=== PATIENT | male | born 1970 | race Hispanic/Latino ===

== ENCOUNTER 2019-01-13 11:00 | Observation (INO) | payer BC, MEDICARE ==
[2019-01-13 11:00] VITALS: BMI 43.7
--- NOTE | 2019-01-13 12:26 | C.PDOC ---
History Of Present Illness WORSENING CP X SEV MONTHS. S/P +OUTPT STRESS TEST. WORSE W MOD EXERTION. NO ASSOC SOB, DIZZY, NV. CURRENTLY ASYMPT. EXAM NEG Time Seen by Provider: 01/13/19 11:29 Chief Complaint (Nursing): Medical Clearance History Per: Patient History/Exam Limitations: no limitations Onset/Duration Of Symptoms: Days Current Symptoms Are (Timing): Gone Severity: Moderate Past Medical History Reviewed: Historical Data, Nursing Documentation, Vital Signs Vital Signs: Last Vital Signs Temp 98.3 F 01/13/19 11:05 Pulse 89 01/13/19 11:05 Resp 18 01/13/19 11:05 BP 130/88 01/13/19 11:05 Pulse Ox 97 01/13/19 11:05 - Medical History PMH: Diabetes, HTN Denies: Chronic Kidney Disease Surgical History: Appendectomy (AGE 10), Tonsillectomy (CHILDHOOD) - [facility] Procedures COLONOSCOPY (01/01/14) ESOPHAGOGASTRODUODENOSCOPY [EGD] W/CLOSED BIOPSY (01/01/14) Family History: States: No Known Family Hx - Social History Hx Tobacco Use: No Hx Alcohol Use: No Hx Substance Use: No - Immunization History Hx Tetanus Toxoid Vaccination: No Hx Influenza Vaccination: Yes Hx Pneumococcal Vaccination: No Review Of Systems Except As Marked, All Systems Reviewed And Found Negative. Constitutional: Negative for: Fever, Chills Cardiovascular: Positive for: Chest Pain Respiratory: Negative for: Shortness of Breath Gastrointestinal: Negative for: Nausea, Vomiting Neurological: Negative for: Dizziness Physical Exam - Physical Exam Appears: Non-toxic, No Acute Distress Skin: Warm, Dry Head: Atraumatic, Normacephalic Eye(s): bilateral: Normal Inspection Oral Mucosa: Moist Neck: Supple Chest: Symmetrical, No Tenderness Cardiovascular: Rhythm Regular Respiratory: Normal Breath Sounds, No Rales, No Rhonchi, No Wheezing Gastrointestinal/Abdominal: Soft, No Tenderness, No Guarding, No Rebound Neurological/Psych: Oriented x3, Normal Speech ED Course And Treatment - Laboratory Results Result Diagrams: 01/13/19 12:30 ECG: Interpreted By Me ECG Rhythm: Sinus Rhythm ECG Interpretation: Normal Rate From EC O2 Sat by Pulse Oximetry: 97 (RA) Pulse Ox Interpretation: Normal - Physician Consult Information Time Consulting Physician Contacted: 12:33 Physician Contacted: Amy Mullen Outcome Of Conversation: C/F PMD WILL ADMIT Medical Decision Making Medical Decision Making: Plan: --Labs --ECG --CXR --Gabapentin PO --Metformin PO Disposition Counseled Patient/Family Regarding: Studies Performed, Diagnosis - Disposition Disposition: HOSPITALIZED Disposition Time: 12:33 Condition: SERIOUS - POA Present On Arrival: None - Clinical Impression Clinical Impression: Chest pain - Scribe Statement The provider has reviewed the documentation as recorded by the Gina Plunkett Provider Attestation: All medical record entries made by the Gina were at my direction and personally dictated by me. I have reviewed the chart and agree that the record accurately reflects my personal performance of the history, physical exam, medical decision making, and the department course for this patient. I have also personally directed, reviewed, and agree with the discharge instructions and disposition.
[2019-01-13 12:36] LABS: BASO # 0.1 K/uL (0.0-0.2); BASO % 1.1 % (0.0-2.0); EOS # 0.1 K/uL (0.0-0.7); EOS % 1.5 % (0.0-4.0); HEMOGLOBIN 15.6 g/dL (12.0-18.0); LYMPH # 1.9 K/uL (1.0-4.3); LYMPH % 19.5 % (20.0-40.0); MEAN CELL VOLUME 89.3 fL (80.0-94.0); MEAN CORPUSCULAR HEMOGLOBIN 31.6 pg (27.0-31.0); MEAN CORPUSCULAR HGB CONC 35.4 g/dL (33.0-37.0); MEAN PLATELET VOLUME 8.8 fL (7.2-11.7); MONO # 0.5 K/uL (0.0-0.8); MONO % 4.9 % (0.0-10.0); RBC 4.93 Mil/uL (4.40-5.90); RED CELL DISTRIBUTION WIDTH 12.6 % (11.5-14.5); WHITE BLOOD COUNT 9.6 K/uL (4.8-10.8)
--- NOTE | 2019-01-13 12:50 | RAD ---
HISTORY: chest pain COMPARISON: Chest x-ray performed 12/15/14 TECHNIQUE: Chest PA and lateral, 2 views FINDINGS: Partially imaged LEAD BLENDER shunt catheter tubing projects over the left neck/hemithorax/upper abdomen. LUNGS: No focal consolidation. Please note that chest x-ray has limited sensitivity for the detection of pulmonary masses. PLEURA: No significant pleural effusion identified. No definite pneumothorax . CARDIOVASCULAR: The cardiomediastinal silhouette appears within normal limits of size. No atherosclerotic calcification present. OSSEOUS STRUCTURES: No acute osseous abnormality identified. VISUALIZED UPPER ABDOMEN: Unremarkable. OTHER FINDINGS: None. IMPRESSION: No focal consolidation. Findings as above.
[2019-01-13 12:58] LABS: ALB/GLOB RATIO 1.6 (1.0-2.1); ALBUMIN 4.1 g/dL (3.5-5.0); ALT/SGPT 37 U/L (21-72); AST/SGOT 34 U/L (17-59); BLOOD UREA NITROGEN 13 mg/dL (9-20); CALCIUM 8.7 mg/dl (8.6-10.4); GFR NON-AFRICAN AMERICAN > 60
--- NOTE | 2019-01-13 18:00 | CP.PCM.HP ---
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 POST OP NO RESIDUAL DEFICITS - HEENT Hx HEENT Problems: No - RENAL Hx Chronic Kidney Disease: No - ENDOCRINE/METABOLIC Hx Endocrine Disorders: Yes Hx Diabetes Mellitus Type 2: Yes - HEMATOLOGICAL/ONCOLOGICAL Hx Blood Disorders: No - INTEGUMENTARY Hx Dermatological Problems: No - MUSCULOSKELETAL/RHEUMATOLOGICAL Hx Musculoskeletal Disorders: No - GASTROINTESTINAL Hx Gastrointestinal Disorders: No - GENITOURINARY/GYNECOLOGICAL Hx Genitourinary Disorders: No - PSYCHIATRIC Hx Substance Use: No - SURGICAL HISTORY Hx Appendectomy: Yes (AGE 10) Hx Tonsillectomy: Yes (CHILDHOOD) - ANESTHESIA Hx Anesthesia: Yes Hx Anesthesia Reactions: No Hx Malignant Hyperthermia: No Meds Allergies/Adverse Reactions: Allergies Allergy/AdvReac Type Severity Reaction Status Date / Time No Known Allergies Allergy Verified 01/13/19 11:08 Results - Vital Signs Recent Vital Signs: Last Vital Signs Temp 98.6 F 01/13/19 14:54 Pulse 75 01/13/19 14:54 Resp 18 01/13/19 14:54 BP 120/61 01/13/19 14:54 Pulse Ox 97 01/13/19 14:54 - Labs Result Diagrams: 01/13/19 12:30 01/13/19 12:30 Labs: Laboratory Results - last 24 hr 01/13/19 01/13/19 12:30 12:30 WBC 9.6 RBC 4.93 Hgb 15.6 Hct 44.0 MCV 89.3 MCH 31.6 H MCHC 35.4 RDW 12.6 Plt Count 240 MPV 8.8 Neut % (Auto) 73.0 Lymph % (Auto) 19.5 L [place] % (Auto) 4.9 Eos % (Auto) 1.5 Baso % (Auto) 1.1 Neut # (Auto) 7.0 Lymph # (Auto) 1.9 [place] # (Auto) 0.5 Eos # (Auto) 0.1 Baso # (Auto) 0.1 Sodium 136 Potassium 3.7 Chloride 100 Carbon Dioxide 28 Anion Gap 12 BUN 13 Creatinine 0.7 L Est GFR ( Amer) > 60 Est GFR (Non-Af Amer) > 60 Random Glucose 256 H Calcium 8.7 Total Bilirubin 0.7 AST 34 ALT 37 Alkaline Phosphatase 76 Troponin I < 0.0120 Total Protein 6.7 Albumin 4.1 Globulin 2.6 Albumin/Globulin Ratio 1.6 Assessment & Plan (1) Chest pain Status: Acute
[2019-01-13] MEDS ORDERED: Pneumococcal 23-Valent Vaccine IM ONE (18:16)
--- NOTE | 2019-01-13 23:42 | CP.PCM.CON ---
History of Present Illness - History of Present Illness History of Present Illness: 48 Male with hx of DM2, HTN, hyperlipidemia and abnormal stress test presents to [facility] ER for chest pain History Per: Patient History/Exam Limitations: no limitations Onset/Duration Of Symptoms: Days Current Symptoms Are (Timing): Gone Severity: Moderate Past Medical History Reviewed: Historical Data, Nursing Documentation, Vital Signs Vital Signs: Last Vital Signs Temp 98.3 F 01/13/19 11:05 Pulse 89 01/13/19 11:05 Resp 18 01/13/19 11:05 BP 130/88 01/13/19 11:05 Pulse Ox 97 01/13/19 11:05 - Medical History PMH: Diabetes, HTN Denies: Chronic Kidney Disease Surgical History: Appendectomy (AGE 10), Tonsillectomy (CHILDHOOD) - [facility] Procedures COLONOSCOPY (01/01/14) ESOPHAGOGASTRODUODENOSCOPY [EGD] W/CLOSED BIOPSY (01/01/14) Family History: States: No Known Family Hx - Social History Hx Tobacco Use: No Hx Alcohol Use: No Hx Substance Use: No - Immunization History Hx Tetanus Toxoid Vaccination: No Hx Influenza Vaccination: Yes Hx Pneumococcal Vaccination: No Review Of Systems Except As Marked, All Systems Reviewed And Found Negative. Constitutional: Negative for: Fever, Chills Cardiovascular: Positive for: Chest Pain Respiratory: Negative for: Shortness of Breath Gastrointestinal: Negative for: Nausea, Vomiting Neurological: Negative for: Dizziness Physical Exam - Physical Exam Appears: Non-toxic, No Acute Distress Skin: Warm, Dry Head: Atraumatic, Normacephalic Eye(s): bilateral: Normal Inspection Oral Mucosa: Moist Neck: Supple Chest: Symmetrical, No Tenderness Cardiovascular: Rhythm Regular Respiratory: Normal Breath Sounds, No Rales, No Rhonchi, No Wheezing Gastrointestinal/Abdominal: Soft, No Tenderness, No Guarding, No Rebound Neurological/Psych: Oriented x3, Normal Speech 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 POST OP NO RESIDUAL DEFICITS - HEENT Hx HEENT Problems: No - RENAL Hx Chronic Kidney Disease: No - ENDOCRINE/METABOLIC Hx Endocrine Disorders: Yes Hx Diabetes Mellitus Type 2: Yes - HEMATOLOGICAL/ONCOLOGICAL Hx Blood Disorders: No - INTEGUMENTARY Hx Dermatological Problems: No - MUSCULOSKELETAL/RHEUMATOLOGICAL Hx Musculoskeletal Disorders: No - GASTROINTESTINAL Hx Gastrointestinal Disorders: No - GENITOURINARY/GYNECOLOGICAL Hx Genitourinary Disorders: No - PSYCHIATRIC Hx Substance Use: No - SURGICAL HISTORY Hx Appendectomy: Yes (AGE 10) Hx Tonsillectomy: Yes (CHILDHOOD) - ANESTHESIA Hx Anesthesia: Yes Hx Anesthesia Reactions: No Hx Malignant Hyperthermia: No Meds Allergies/Adverse Reactions: Allergies Allergy/AdvReac Type Severity Reaction Status Date / Time No Known Allergies Allergy Verified 01/13/19 11:08 - Medications Medications: Current Medications Amlodipine Besylate (Norvasc) 10 mg PO DAILY [facility] Aspirin (Ecotrin) 81 mg PO DAILY [facility] Enoxaparin Sodium (Lovenox) 40 mg SC DAILY [facility] Gabapentin (Neurontin) 300 mg PO HS [facility] Last Admin: 01/13/19 22:13 Dose: 300 mg Insulin Aspart (Novolog) 0 unit SC [facility]; Protocol Metoprolol Tartrate (Lopressor) 25 mg PO BID [facility] Rosuvastatin Calcium (Crestor) 20 mg PO HS [facility] Last Admin: 01/13/19 22:20 Dose: 20 mg Vitamin B Complex/Vitamin C (Berocca) 1 tab PO DAILY [facility] Results - Vital Signs Recent Vital Signs: Last Vital Signs Temp 98.6 F 01/13/19 14:54 Pulse 70 01/13/19 17:54 Resp 18 01/13/19 14:54 BP 120/61 01/13/19 14:54 Pulse Ox 97 01/13/19 14:54 - Labs Result Diagrams: 01/13/19 12:30 01/13/19 12:30 Labs: Laboratory Results - last 24 hr 01/13/19 01/13/19 12:30 12:30 WBC 9.6 RBC 4.93 Hgb 15.6 Hct 44.0 MCV 89.3 MCH 31.6 H MCHC 35.4 RDW 12.6 Plt Count 240 MPV 8.8 Neut % (Auto) 73.0 Lymph % (Auto) 19.5 L [place] % (Auto) 4.9 Eos % (Auto) 1.5 Baso % (Auto) 1.1 Neut # (Auto) 7.0 Lymph # (Auto) 1.9 [place] # (Auto) 0.5 Eos # (Auto) 0.1 Baso # (Auto) 0.1 Sodium 136 Potassium 3.7 Chloride 100 Carbon Dioxide 28 Anion Gap 12 BUN 13 Creatinine 0.7 L Est GFR ( Amer) > 60 Est GFR (Non-Af Amer) > 60 Random Glucose 256 H Calcium 8.7 Total Bilirubin 0.7 AST 34 ALT 37 Alkaline Phosphatase 76 Troponin I < 0.0120 Total Protein 6.7 Albumin 4.1 Globulin 2.6 Albumin/Globulin Ratio 1.6 Assessment & Plan - Assessment and Plan (Free Text) Assessment: 48 Male with hx of DM2, HTN, hyperlipidemia and abnormal stress test presents to [facility] ER for chest pain For cath tomorrow at 12 noon D/W the patient
[2019-01-14 02:07] VITALS: RESP 20
[2019-01-14] MEDS: Enoxaparin 40 mg Syringe SC SCH (09:34)
[2019-01-14] MEDS: Vitamin B Complex/Vitamin C Tab PO SCH (09:34)
[2019-01-14] MEDS: (Novolog) Insulin Aspart, Recombinant 100 u/ml 10 ml vial SC SCH ×5 (09:35→22:04)
[2019-01-14] MEDS ORDERED: Lidocaine 2% MPF (5 ml) Inj ONE (13:24)
[2019-01-14] MEDS ORDERED: Verapamil 2 ML ONE (13:24)
[2019-01-14] MEDS ORDERED: Iohexol 350mg/ml 100 ML ONE ×3 (13:24→14:20)
[2019-01-14] MEDS ORDERED: Nitroglycerin 50mg in D5W 50 MG/250 ML BOTTLE IV ONE (13:25)
[2019-01-14] MEDS ORDERED: Midazolam 2 MG/2 ML VIAL ONE (13:44)
--- NOTE | 2019-01-14 14:27 | CP.PCM.PN ---
Subjective - Date & Time of Evaluation Date of Evaluation: 01/14/19 Time of Evaluation: 14:22 - Subjective Subjective: Patient s/p Cardiac cath Normal Coronaries EF 50% Sluggish coronary flow Recommend ASA 81 and statin daily Objective - Vital Signs/Intake and Output Vital Signs (last 24 hours): Temp Pulse Resp BP Pulse Ox 97.6 F 71 20 147/88 95 01/14/19 07:30 01/14/19 07:30 01/14/19 07:30 01/14/19 09:33 01/14/19 07:30 - Medications Medications: Current Medications Amlodipine Besylate (Norvasc) 10 mg PO DAILY [facility] Last Admin: 01/14/19 09:34 Dose: 10 mg Aspirin (Ecotrin) 81 mg PO DAILY [facility] Last Admin: 01/14/19 09:34 Dose: 81 mg Enoxaparin Sodium (Lovenox) 40 mg SC DAILY [facility] Last Admin: 01/14/19 09:34 Dose: 40 mg Gabapentin (Neurontin) 300 mg PO [facility] Last Admin: 01/13/19 22:13 Dose: 300 mg Insulin Aspart (Novolog) 0 unit SC [facility]; Protocol Last Admin: 01/14/19 11:39 Dose: Not Given Metoprolol Tartrate (Lopressor) 25 mg PO BID [facility] Last Admin: 01/14/19 09:33 Dose: 25 mg Pneumococcal Polyvalent Vaccine (Pneumovax 23 Vaccine) 0.5 ml IM .ONCE ONE Stop: 01/15/19 10:01 Rosuvastatin Calcium (Crestor) 20 mg PO [facility] Last Admin: 01/13/19 22:20 Dose: 20 mg Vitamin B Complex/Vitamin C (Berocca) 1 tab PO DAILY [facility] Last Admin: 01/14/19 09:34 Dose: 1 tab - Labs Labs: 01/13/19 12:30 01/13/19 12:30
--- NOTE | 2019-01-14 16:39 | CP.PCM.PN ---
Subjective - Date & Time of Evaluation Date of Evaluation: 01/14/19 Time of Evaluation: 16:35 - Subjective Subjective: Pt is seen and examined s/p cardiac cath with normal coronaries Objective - Vital Signs/Intake and Output Vital Signs (last 24 hours): Temp Pulse Resp BP Pulse Ox 97.6 F 71 20 147/88 95 01/14/19 07:30 01/14/19 07:30 01/14/19 07:30 01/14/19 09:33 01/14/19 07:30 - Medications Medications: Current Medications Amlodipine Besylate (Norvasc) 10 mg PO DAILY [facility] Last Admin: 01/14/19 09:34 Dose: 10 mg Aspirin (Ecotrin) 81 mg PO DAILY [facility] Last Admin: 01/14/19 09:34 Dose: 81 mg Enoxaparin Sodium (Lovenox) 40 mg SC DAILY [facility] Last Admin: 01/14/19 09:34 Dose: 40 mg Gabapentin (Neurontin) 300 mg PO [facility] Last Admin: 01/13/19 22:13 Dose: 300 mg Insulin Aspart (Novolog) 0 unit SC [facility]; Protocol Last Admin: 01/14/19 11:39 Dose: Not Given Metoprolol Tartrate (Lopressor) 25 mg PO BID [facility] Last Admin: 01/14/19 09:33 Dose: 25 mg Pneumococcal Polyvalent Vaccine (Pneumovax 23 Vaccine) 0.5 ml IM .ONCE ONE Stop: 01/15/19 10:01 Rosuvastatin Calcium (Crestor) 20 mg PO [facility] Last Admin: 01/13/19 22:20 Dose: 20 mg Vitamin B Complex/Vitamin C (Berocca) 1 tab PO DAILY [facility] Last Admin: 01/14/19 09:34 Dose: 1 tab - Labs Labs: 01/13/19 12:30 01/13/19 12:30 - Head Exam Head Exam: NORMAL INSPECTION - Eye Exam Eye Exam: Normal appearance - ENT Exam ENT Exam: Mucous Membranes Moist - Respiratory Exam Respiratory Exam: Clear to Ausculation Bilateral - Cardiovascular Exam Cardiovascular Exam: REGULAR RHYTHM, +S1, +S2 - GI/Abdominal Exam GI & Abdominal Exam: Soft, Normal Bowel Sounds - Extremities Exam Extremities Exam: Normal Inspection - Neurological Exam Neurological Exam: Alert, Oriented x3 Assessment and Plan (1) Chest pain Status: Acute (2) HTN (hypertension) Status: Acute (3) Diabetes Status: Acute - Assessment and Plan (Free Text) Plan: S/p cardiac cath ASA Metoprolol Accucheck Insulin coverage If blood work is OK in AM will d/c pt home
[2019-01-15 07:28] LABS: BASO % 0.5 % (0.0-2.0); EOS # 0.2 K/uL (0.0-0.7); EOS % 2.1 % (0.0-4.0); HEMOGLOBIN 15.4 g/dL (12.0-18.0); LYMPH % 21.3 % (20.0-40.0); MEAN CELL VOLUME 89.2 fL (80.0-94.0); MEAN CORPUSCULAR HEMOGLOBIN 31.7 pg (27.0-31.0); MEAN CORPUSCULAR HGB CONC 35.5 g/dL (33.0-37.0); MEAN PLATELET VOLUME 8.7 fL (7.2-11.7); MONO # 0.5 K/uL (0.0-0.8); MONO % 5.5 % (0.0-10.0); NEUT # 6.7 K/uL (1.8-7.0); NEUT % 70.6 % (50.0-75.0); NRBC % 0.1 % (0.0-2.0); RBC 4.87 Mil/uL (4.40-5.90); RED CELL DISTRIBUTION WIDTH 12.6 % (11.5-14.5); WHITE BLOOD COUNT 9.5 K/uL (4.8-10.8)
[2019-01-15 07:37] VITALS: BP 149/87; PULSE 67; TEMP 98; O2SAT 95
[2019-01-15 07:47] LABS: ALB/GLOB RATIO 1.4 (1.0-2.1); ALBUMIN 3.8 g/dL (3.5-5.0); ALT/SGPT 37 U/L (21-72); AST/SGOT 34 U/L (17-59); BLOOD UREA NITROGEN 15 mg/dL (9-20); CALCIUM 8.8 mg/dl (8.6-10.4); GFR NON-AFRICAN AMERICAN > 60
[2019-01-15] MEDS: (Novolog) Insulin Aspart, Recombinant 100 u/ml 10 ml vial SC SCH ×2 (08:33→13:09)
[2019-01-15] MEDS ORDERED: Potassium Chloride 20 mEq ER Tab PO ONE (10:00)
[2019-01-15] MEDS ORDERED: Pneumococcal 23-Valent Vaccine IM ONE (10:00)
[2019-01-15] MEDS: Vitamin B Complex/Vitamin C Tab PO SCH (10:01)
[2019-01-15] MEDS: Enoxaparin 40 mg Syringe SC SCH (10:02)
--- NOTE | 2019-01-15 12:07 | CP.PCM.PN ---
Subjective - Date & Time of Evaluation Date of Evaluation: 01/15/19 Time of Evaluation: 12:00 - Subjective Subjective: Progress note for Dr. Goss Patient was seen and examined at bedside in no acute distress. Patient reports he is feeling well and has no complaints. He denies chest pain, palpitations, dyspnea, dizziness, headaches, changes in vision, n/v, abdominal pain, leg pain. Objective - Vital Signs/Intake and Output Vital Signs (last 24 hours): Temp Pulse Resp BP Pulse Ox 98.0 F 67 20 149/87 95 01/15/19 07:15 01/15/19 07:15 01/15/19 07:15 01/15/19 10:02 01/15/19 07:15 - Medications Medications: Current Medications Amlodipine Besylate (Norvasc) 10 mg PO DAILY [facility] Last Admin: 01/15/19 10:01 Dose: 10 mg Aspirin (Ecotrin) 81 mg PO DAILY [facility] Last Admin: 01/15/19 10:01 Dose: 81 mg Enoxaparin Sodium (Lovenox) 40 mg SC DAILY [facility] Last Admin: 01/15/19 10:02 Dose: 40 mg Gabapentin (Neurontin) 300 mg PO [facility] Last Admin: 01/14/19 22:01 Dose: 300 mg Insulin Aspart (Novolog) 0 unit SC [facility]; Protocol Last Admin: 01/15/19 08:33 Dose: 3 unit Metoprolol Tartrate (Lopressor) 25 mg PO BID [facility] Last Admin: 01/15/19 10:02 Dose: 25 mg Rosuvastatin Calcium (Crestor) 20 mg PO [facility] Last Admin: 01/14/19 22:00 Dose: 20 mg Vitamin B Complex/Vitamin C (Berocca) 1 tab PO DAILY [facility] Last Admin: 01/15/19 10:01 Dose: 1 tab - Labs Labs: 01/15/19 06:49 01/15/19 06:49 - Constitutional Appears: Well, No Acute Distress - Head Exam Head Exam: ATRAUMATIC, NORMAL INSPECTION - Eye Exam Eye Exam: EOMI, Normal appearance - ENT Exam ENT Exam: Mucous Membranes Moist - Respiratory Exam Respiratory Exam: Clear to Ausculation Bilateral, NORMAL BREATHING PATTERN. absent: Rales, Rhonchi, Wheezes - Cardiovascular Exam Cardiovascular Exam: REGULAR RHYTHM, +S1, +S2 - GI/Abdominal Exam GI & Abdominal Exam: Soft, Normal Bowel Sounds. absent: Distended, Firm, Tenderness - Extremities Exam Extremities Exam: Normal Inspection. absent: Pedal Edema, Tenderness - Neurological Exam Neurological Exam: Alert, Awake, Oriented x3 - Psychiatric Exam Psychiatric exam: Normal Affect, Normal Mood - Skin Skin Exam: Dry, Normal Color, Warm Assessment and Plan - Assessment and Plan (Free Text) Plan: 48 year old male with a history of DM2, HTN, hyperlipidemia and abnormal stress test presents to [facility] ER for chest pain. Patient is s/p Cardiac cath. Chest pain - Patient had cardiac cath on 01/14/19- normal coronaries, EF 50%, TIMI2 flow, sluggish coronary flow - Continue Aspirin 81mg PO daily and Crestor 20mg PO HS Hypertension - Continue Metoprolol 25mg PO BID and Norvas 10mg PO daily Case discussed with Dr. Wolfgang Ny, PGY2
--- NOTE | 2019-01-15 13:24 | CP.PCM.PN ---
Subjective - Date & Time of Evaluation Date of Evaluation: 01/15/19 Time of Evaluation: 13:00 - Subjective Subjective: Patient seen today denies, any chest pain, sob, dizziness, palpitations, numbness or tinglings to roseanna R arm , no hematoma noted on the site, pulses palpable s/p cardiac cath vss and labs reviewed-stable K- 3.4 and replaced Objective - Vital Signs/Intake and Output Vital Signs (last 24 hours): Temp Pulse Resp BP Pulse Ox 98.0 F 67 20 149/87 95 01/15/19 07:15 01/15/19 07:15 01/15/19 07:15 01/15/19 10:02 01/15/19 07:15 - Medications Medications: Current Medications Amlodipine Besylate (Norvasc) 10 mg PO DAILY [facility] Last Admin: 01/15/19 10:01 Dose: 10 mg Aspirin (Ecotrin) 81 mg PO DAILY [facility] Last Admin: 01/15/19 10:01 Dose: 81 mg Enoxaparin Sodium (Lovenox) 40 mg SC DAILY [facility] Last Admin: 01/15/19 10:02 Dose: 40 mg Gabapentin (Neurontin) 300 mg PO [facility] Last Admin: 01/14/19 22:01 Dose: 300 mg Insulin Aspart (Novolog) 0 unit SC [facility]; Protocol Last Admin: 01/15/19 13:09 Dose: 4 unit Metoprolol Tartrate (Lopressor) 25 mg PO BID [facility] Last Admin: 01/15/19 10:02 Dose: 25 mg Rosuvastatin Calcium (Crestor) 20 mg PO [facility] Last Admin: 01/14/19 22:00 Dose: 20 mg Vitamin B Complex/Vitamin C (Berocca) 1 tab PO DAILY [facility] Last Admin: 01/15/19 10:01 Dose: 1 tab - Labs Labs: 01/15/19 06:49 01/15/19 06:49 Assessment and Plan - Assessment and Plan (Free Text) Assessment: A/P 48 yr old male with pmhx of Diabetes, HTN admitted with abnormal stress test and dyspena on exertion for few days s/p cardia carh - on 01/14/19- normal coronaries, EF 50%, TIMI2 flow, sluggish coronary flow and recommends to Continue Aspirin 81mg PO daily and Crestor 20mg PO HS D/w Dr. Mullen , cleared for discharge home today and f/u with Dr. Hall office in [address] De Leon office in 1 week ' Discharge plan discussed with patient who understands and agrees with plan Patient instructed to returns to ED if symptoms returns or any other concerning symptom s RX given upon discharge
--- NOTE | 2019-01-15 22:33 | CARD ---
APPROVED REPORT Date of service: 01/14/2019 EXAM: Two-dimensional and M-mode echocardiogram with Doppler and color Doppler. Other Information Quality : GoodRhythm : INDICATION Chest Pain RISK FACTORS Hypertension Hyperlipidemia Diabetes 2D DIMENSIONS IVSd1.3 (0.7-1.1cm)LVDd4.8 (3.9-5.9cm) PWd1.2 (0.7-1.1cm)LA [id number] (18-58mL) LVDs3.2 (2.5-4.0cm)FS (%) 33.4 % LVEF (%)61.9 (>50%)LVEF (Rosas's)65 % M-Mode DIMENSIONS Left Atrium (MM)3.85 (2.5-4.0cm)IVSd1.14 (0.7-1.1cm) Aortic Root4.45 (2.2-3.7cm)LVDd5.47 (4.0-5.6cm) Aortic Cusp Exc.2.95 (1.5-2.0cm)PWd0.99 (0.7-1.1cm) FS (%) 39 %LVDs3.34 (2.0-3.8cm) LVEF (%)69 (>50%) Mitral Valve MV E Xwgcgxer10.6cm/sMV A Svqdtoxx32.6cm/sE/A ratio0.8 TDI Lateral E' Peak V9.94cm/sMedial E' Peak V10.05cm/sE/Lateral E'4.8 E/Medial E'4.7 Tricuspid Valve TR Peak [id number]/sTR Peak [id number] LEFT VENTRICLE The left ventricle is normal size. There is normal left ventricular wall thickness. The left ventricular function is normal. The left ventricular ejection fraction is within the normal range. There is normal LV segmental wall motion. Transmitral Doppler flow pattern is abnormal. RIGHT VENTRICLE The right ventricle is normal size. ATRIA The left atrium size is normal. The right atrium size is normal. AORTIC VALVE The aortic valve is normal in structure. MITRAL VALVE The mitral valve is normal in structure. TRICUSPID VALVE There is mild tricuspid regurgitation. GREAT VESSELS The aortic root is mildly enlarged. The ascending aorta is Mildly dilated. <Conclusion> Normal LV systolic function. Diastolic dysfunction. Normal chamber szie. Dilated Aortic root and Aorta. Mild TR.
--- NOTE | 2019-01-16 00:57 | CP.PCM.DIS ---
Provider - Provider Date of Admission: 01/13/19 12:34 Attending physician: Amy Mullen MD Consults: 01/13/19 18:03 Physician Consult Routine Comment: Consulting Provider: Eddie Goss Consulting Physician: Eddie Goss Reason for Consult: Abnormal Stress Test Diagnosis - Discharge Diagnosis (1) Chest pain Status: Acute (2) HTN (hypertension) Status: Acute (3) Diabetes Status: Acute Hospital Course - Lab Results Lab Results: Most Recent Lab Values WBC 9.5 K/uL (4.8-10.8) 01/15/19 06:49 RBC 4.87 Mil/uL (4.40-5.90) 01/15/19 06:49 Hgb 15.4 g/dL (12.0-18.0) 01/15/19 06:49 Hct 43.5 % (35.0-51.0) 01/15/19 06:49 MCV 89.2 fL (80.0-94.0) 01/15/19 06:49 MCH 31.7 pg (27.0-31.0) H 01/15/19 06:49 MCHC 35.5 g/dL (33.0-37.0) 01/15/19 06:49 RDW 12.6 % (11.5-14.5) 01/15/19 06:49 Plt Count 232 K/uL (130-400) 01/15/19 06:49 MPV 8.7 fL (7.2-11.7) 01/15/19 06:49 Neut % (Auto) 70.6 % (50.0-75.0) 01/15/19 06:49 Lymph % (Auto) 21.3 % (20.0-40.0) 01/15/19 06:49 [place] % (Auto) 5.5 % (0.0-10.0) 01/15/19 06:49 Eos % (Auto) 2.1 % (0.0-4.0) 01/15/19 06:49 Baso % (Auto) 0.5 % (0.0-2.0) 01/15/19 06:49 Neut # (Auto) 6.7 K/uL (1.8-7.0) 01/15/19 06:49 Lymph # (Auto) 2.0 K/uL (1.0-4.3) 01/15/19 06:49 [place] # (Auto) 0.5 K/uL (0.0-0.8) 01/15/19 06:49 Eos # (Auto) 0.2 K/uL (0.0-0.7) 01/15/19 06:49 Baso # (Auto) 0.0 K/uL (0.0-0.2) 01/15/19 06:49 Sodium 135 mmol/L (132-148) 01/15/19 06:49 Potassium 3.5 mmol/L (3.6-5.2) L 01/15/19 06:49 Chloride 100 mmol/L (98-107) 01/15/19 06:49 Carbon Dioxide 30 mmol/L (22-30) 01/15/19 06:49 Anion Gap 9 (10-20) L 01/15/19 06:49 BUN 15 mg/dL (9-20) 01/15/19 06:49 Creatinine 0.7 mg/dL (0.8-1.5) L 01/15/19 06:49 Est GFR ( Amer) > 60 01/15/19 06:49 Est GFR (Non-Af Amer) > 60 01/15/19 06:49 POC Glucose (mg/dL) 295 mg/dL (65-110) H 01/15/19 11:11 Random Glucose 247 mg/dL (75-110) H 01/15/19 06:49 Calcium 8.8 mg/dl (8.6-10.4) 01/15/19 06:49 Total Bilirubin 0.7 mg/dL (0.2-1.3) 01/15/19 06:49 AST 34 U/L (17-59) 01/15/19 06:49 ALT 37 U/L (21-72) 01/15/19 06:49 Alkaline Phosphatase 66 U/L (38-126) 01/15/19 06:49 Troponin I < 0.0120 ng/mL (0.00-0.120) 01/13/19 12:30 Total Protein 6.5 g/dL (6.3-8.3) 01/15/19 06:49 Albumin 3.8 g/dL (3.5-5.0) 01/15/19 06:49 Globulin 2.7 gm/dL (2.2-3.9) 01/15/19 06:49 Albumin/Globulin Ratio 1.4 (1.0-2.1) 01/15/19 06:49 Discharge Exam - Head Exam Head Exam: ATRAUMATIC, NORMAL INSPECTION Discharge Plan - Discharge Medications Prescriptions: Rosuvastatin Calcium [Crestor] 20 mg PO HS #30 tab Aspirin [Ecotrin] 81 mg PO DAILY #30 tabec Metoprolol Tartrate [Lopressor] 25 mg PO BID #60 tab amLODIPine [Norvasc] 10 mg PO DAILY #30 tab - Follow Up Plan Condition: SERIOUS Disposition: HOME/ ROUTINE Instructions: Diabetes Exchange Diet, Chest Pain That Is Not Caused by the Heart (DC), Diabetes Diet , Chest Pain (DC), Low Salt Diet, Amlodipine, Metoprolol, Rosuvastatin, Hypertension (DC) Additional Instructions: Please follow up with Dr. Hall office in 1 week - call and make appointmen t Please follow up with Dr. 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
== END 2019-01-15 14:19 | disposition home or self-care (01) ==
LOC: C.ER 11:00 → C.9E 12:34 → C.6T 16:09
PROVIDERS: ADMIT Internal Medicine Critical Care Medicine; ATTEND Internal Medicine Critical Care Medicine
DX: R07.9 Chest pain, unspecified (principal); E11.9 Type 2 diabetes mellitus without complications; E78.5 Hyperlipidemia, unspecified; I10 Essential (primary) hypertension; Z86.73 Personal history of transient ischemic attack (TIA), and cerebral infarction without residual deficits; R94.39 Abnormal result of other cardiovascular function study
CPT/HCPCS: 36415; 71046; 80053; 82948; 84484; 85025; 90732; 93306; 93458; 99152; 99153; 99285; C1769; C1887; G0009; G0378; J1644; J1650; J2001; J2250; J3010; Q9967